=== PATIENT | female | born 1965 | race Caucasian/White ===

== ENCOUNTER 2025-07-26 18:41 | Emergency (ER) | payer OTHER, SELFPAY ==
[2025-07-26 18:44] VITALS: BP 121/99
--- NOTE | 2025-07-26 20:04 | ED.GENMED ---
History of Present Illness
General
Chief Complaint: Fall
Source: patient
Exam Limitations: none
Time Seen by Provider: 07/26/25 19:04
Nursing documentation reviewed up to this point in time: agreed with
History of Present Illness
History of Present Illness:
Patient is a 60-year-old female who presents to the emergency department for evaluation following a mechanical fall earlier this evening. Patient states she was helping her daughter to hang curtains at her home when a stepstool slipped out from
under her and she fell striking her lower chest/upper abdomen on a dresser. She reports impact as pretty severe and it 'knocked the wind out of her'. Patient reports significant pain across her lower chest wall/upper abdomen since incident. Pain
is worse with deep inspiration.
She denies any head strike or loss of consciousness. No pain in upper or lower extremities. No neck or back pain. No numbness/tingling or weakness in extremities or bowel/bladder incontinence.
Patient is not on any oral anticoagulation.
Review of Systems
Review of Systems
Allergies reviewed?: Yes
All Other Systems: ROS reviewed and negative except as documented in HPI and ROS
Phy Exam
Physical Exam
Physical Exam:
GENERAL: No acute distress
HEENT: atraumatic, extraocular muscles intact, no signs of entrapment, no other obvious trauma
NECK: no midline tenderness, normal range of motion, no other obvious trauma
BACK: no midline tenderness, no tenderness of posterior ribs, no other obvious trauma
CHEST: Reproducible tenderness to bilateral lower chest/ribs, no flail segment, no subcutaneous emphysema, no other obvious trauma
LUNGS: clear to auscultation bilaterally
CARDIOVASCULAR: regular rate and rhythm
ABDOMEN: soft, reproducible tenderness in both LUQ and RUQ with ecchymoses of epigastric region, no masses,
PELVIS: stable, no obvious injury
EXTREMITIES: moving all extremities, distal pulses intact, no other obvious trauma
NEUROLOGIC: awake, alert x 3, no focal deficits
Course
Orders/Labs/Results
Orders:
Orders
07/26/25 18:48
CR Ribs-hari 4 Vw W/pa Chest Urgent
Comment:
Reason For Exam: pain
07/26/25 19:22
US Abdomen Complete/Upper Urgent
Comment:
Reason For Exam: LUQ pain following fall
07/26/25 20:04
Acetaminophen [Tylenol] 650 mg PO NOW STA
07/26/25 20:25
Incentive Spirometry [Rx Incentive Spirometry] [RESP] Urgent
Frequency: q1h while awake
Vital Signs
Initial and Last Documented VS:
Initial Vital Signs
Temp Pulse Resp BP Pulse Ox
98 F 79 16 121/99 96
07/26/25 18:44 07/26/25 18:44 07/26/25 18:44 07/26/25 18:44 07/26/25 18:44
Last Documented Vital Signs
Temp Pulse Resp BP Pulse Ox
98 F 80 18 121/99 100
07/26/25 18:44 07/26/25 20:40 07/26/25 20:40 07/26/25 18:44 07/26/25 20:40
MDM/Problems Addressed
Differential Diagnosis Includes:
Not limited to: Rib contusion, rib fracture, pneumothorax, abdominal contusion, traumatic intra-abdominal injury such as liver laceration or splenic laceration, etc.
MDM/Problems Addressed:
60-year-old female presenting with bilateral lower chest wall pain/upper abdominal pain after mechanical fall today. Patient fell from low step ladder, striking her torso on a crib. There was no head strike or loss of consciousness. No oral
anticoagulation.
Vitals and physical exam as above. Patient does have significant reproducible tenderness in lower chest wall/lower ribs bilaterally. Lung sounds clear without any evidence of respiratory distress. She does have an ecchymosis noted in epigastric
region. Abdomen is soft. She is tender in both LUQ and RUQ without rebound tenderness. No evidence of head or neck trauma. She is neurologically intact. No evidence of extremity injuries.
Prior to my assessment � bilateral rib series was obtained without any evidence of lung injury or displaced rib fractures.
Will obtain abdominal UT to r/o free fluid in abdomen to suggest intra-abdominal injury.
Update: abdominal ultrasound without acute findings. She appears overall well. Likely rib contusions. Her vitals are stable and she is in no distress. Feel stable for discharge home with supportive care, incentive spirometry, and primary care
follow-up. Strict return precautions discussed. Patient comfortable with plan.
Chronic conditions affecting care:
N/A
Acute Exacerbation and/or Progression of Chronic Illness:
N/A
*Radiology
Radiology exam reviewed: radiology read reviewed
*Pulse Oximetry
SaO2: 96
Oxygen Mode of Delivery: Room air
Patient hypoxic: no
*EKG
Interpreted by ED Provider?: NA
*Student Affairs Vice President Interpretation
Rate: Student Affairs Vice President- N/A
*Critical Care Note
Total Time (30-74mins, 75-104mins- exclusive of procedures): Not Applicable
ED Attending Note
-
Portions of this chart may have been created with voice recognition software.� Occasional wrong word or��sound alike� substitutions may have occurred due to the inherent limitations of voice recognition software.
Discharge Plan
Departure
Patient Disposition: Home (Routine Discharge)
Date of Disposition: 07/26/25
Time of Disposition: 20:25
Patient with high blood pressure during this ER visit?: Yes
Condition: Good
Discharge Problem:
Fall, Bilateral contusion of ribs
Instructions: How to use an incentive spirometer, Rib fracture or bruised rib - ED (DC), BLOOD PRESSURE
Prescriptions:
New
lidocaine 5 % adhesive patch,medicated
1 patch topical DAILY Qty: 15 0RF
Activity Restrictions/Additional Instructions:
RETURN TO THE EMERGENCY DEPARTMENT ANY INTRACTABLE PAIN, FEVER/CHILLS, PRODUCTIVE COUGH OR COUGHING UP BLOOD, SEVERE ABDOMINAL/BACK PAIN, SHORTNESS OF BREATH/DIFFICULTY BREATHING, WORSENING CURRENT SYMPTOMS, OR ANY OTHER SYMPTOMS CONCERNING TO YOU
- As discussed�your imaging showed no evidence of acute traumatic injuries. You likely sustained bruises to your ribs.
- You can take Tylenol and/or Motrin for pain. You can apply lidocaine patches as directed.
- It is important to use your incentive spirometer 10 times per hour when awake to continue to expand your lungs.
- Follow-up with your primary care provider next week for further evaluation/management to ensure that your symptoms are improving
Monitor your symptoms closely and return to the emergency department with any acute worsening/new symptoms or any other concerns
Interventions
Interventions:
*Risk Screen - Suicide Last Done: 07/26/25 18:44
*General Assessment Last Done: 07/26/25 20:39
*Neglect/Abuse Screening Last Done: 07/26/25 18:44
*ED- Fall Risk Assessment Last Done: 07/26/25 20:39
*Nursing Disposition Last Done: 07/26/25 20:40
ED-Musculoskeletal Assessment Last Done: 07/26/25 20:39
ED- Neurological Assessment Last Done: 07/26/25 20:38
Discharge Date and Time
Discharge Date/Time: 07/26/25 20:43
Print Language: CZECH
[2025-07-26] MEDS: TYLENOL 650 MG PO (20:32)
== END 2025-07-26 20:43 | disposition home or self-care (01) ==
LOC: EMR 18:41
PROVIDERS: EMERGENCY PHYSICIAN Emergency Medicine; FAMILY PHYSICIAN Internal Medicine
DX: S20.213A Contusion of bilateral front wall of thorax, initial encounter (principal); R03.0 Elevated blood-pressure reading, without diagnosis of hypertension; W08.XXXA Fall from other furniture, initial encounter; W22.09XA Striking against other stationary object, initial encounter; Y93.E9 Activity, other interior property and clothing maintenance; Y92.009 Unspecified place in unspecified non-institutional (private) residence as the place of occurrence of the external cause
CPT/HCPCS: 99284; 71111; 76700